=== PATIENT | male | born 1950 | race Caucasian/White ===

== ENCOUNTER 2017-11-24 21:19 | Emergency (ER) | payer SELFPAY ==
[~2017-11-24] VITALS: Ht 160 cm; Wt 65.3 kg
[2017-11-25 00:51] VITALS: BP 122/75
== END 2017-11-25 00:41 | disposition home or self-care (01) ==
LOC: ED 21:19
DX: S62.662A Nondisplaced fracture of distal phalanx of right middle finger, initial encounter for closed fracture (principal); S60.561A Insect bite (nonvenomous) of right hand, initial encounter; L03.113 Cellulitis of right upper limb; W19.XXXA Unspecified fall, initial encounter; Y93.89 Activity, other specified; Y92.89 Other specified places as the place of occurrence of the external cause; Y99.8 Other external cause status
CPT/HCPCS: Q0092